=== PATIENT | male | born 2000 | race Caucasian/White ===

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

== ENCOUNTER 2021-05-04 13:34 | Emergency (ER) | payer OTHER | END 2021-05-04 15:13 | disposition left against medical advice (07) | LOC: ED 13:34 | DX: M54.9 Dorsalgia, unspecified (principal); Z53.21 Procedure and treatment not carried out due to patient leaving prior to being seen by health care provider ==

== ENCOUNTER 2021-07-16 15:22 | Emergency (ER) | payer OTHER ==
[~2021-07-16] VITALS: Wt 81.6 kg
== END 2021-07-16 17:00 | disposition home or self-care (01) ==
LOC: ED 15:22
DX: S61.212A Laceration without foreign body of right middle finger without damage to nail, initial encounter (principal); W22.8XXA Striking against or struck by other objects, initial encounter; Y93.89 Activity, other specified; Y92.89 Other specified places as the place of occurrence of the external cause; Y99.8 Other external cause status